=== PATIENT | female | born 1955 | race Two or more races ===

== ENCOUNTER 2019-12-02 18:20 | Emergency (ER) | payer OTHER ==
[~2019-12-02] VITALS: Ht 162.6 cm; Wt 80.7 kg
[~2019-12-02 18:20] MED LIST: NORFLEX100MG PO
== END 2019-12-02 21:43 | disposition home or self-care (01) ==
LOC: ER 18:20
DX: K52.9 Noninfective gastroenteritis and colitis, unspecified (principal)

== ENCOUNTER 2022-05-20 00:03 | Emergency (ER) | payer OTHER | END 2022-05-20 06:11 | disposition home or self-care (01) | LOC: ER 00:03 | DX: R10.9 Unspecified abdominal pain (principal); Z88.1 Allergy status to other antibiotic agents; N39.0 Urinary tract infection, site not specified; K57.90 Diverticulosis of intestine, part unspecified, without perforation or abscess without bleeding ==

== ENCOUNTER 2023-03-08 17:07 | Inpatient (IN) | payer OTHER ==
[~2023-03-08] VITALS: Ht 162.6 cm; Wt 68.0 kg
[~2023-03-08 17:07] MED LIST changes: +ACETAMINOPHEN650 M2; +ACETAMINOPHEN650 M2 PO; +CEFDINIR300 MG PO; +INTESTINEX680 M1 PO; +LEVSIN0.125 MG PO; +PEPCID20 MG PO
[2023-03-11] MEDS ORDERED: INTESTINEX680 M1 PO (10:57)
[2023-03-11] MEDS ORDERED: PEPTO-BISM262 MG/15 PO (10:57)
[2023-03-11] MEDS ORDERED: ZOFRAN8 MG PO (10:58)
[2023-03-11] MEDS ORDERED: PEPCID20 MG PO (10:59)
== END 2023-03-11 15:21 | disposition home or self-care (01) | DRG 392 ==
LOC: ER 17:07 → MEDJ 03-09 10:55
PROVIDERS: ADMIT Internal Medicine; ATTEND Internal Medicine
PROC: BW21ZZZ Computerized Tomography (CT Scan) of Abdomen and Pelvis (ICD-10-PCS; principal; 2023-03-08)
DX: K57.30 Diverticulosis of large intestine without perforation or abscess without bleeding (principal); E87.1 Hypo-osmolality and hyponatremia; E86.0 Dehydration; R19.7 Diarrhea, unspecified

== ENCOUNTER 2024-07-07 10:17 | Emergency (ER) | payer OTHER ==
[~2024-07-07] VITALS: Ht 160 cm; Wt 77.6 kg
[~2024-07-07 10:17] MED LIST changes: +PEPTO-BISM262 MG/15 PO; +ZOFRAN8 MG PO
[2024-07-07] MEDS ORDERED: 0.9 % SODIUM CHLORIDE 500 ML IV ONE (11:00)
[2024-07-07] MEDS ORDERED: FAMOtidine 10 MG/ML (4ML VIAL) IV ONE (11:00)
[2024-07-07 11:35] LABS: HEMATOCRIT 40.9 % (36.0-45.00); HEMOGLOBIN 13.9 g/dL (12.0-15.00); MEAN CELL VOLUME 90.5 fL (80.00-100.00); MEAN CORPUSCULAR HEMOGLOBIN 30.7 pg (27.00-32.0); MEAN CORPUSCULAR HGB CONC 33.9 g/dl (32.0-36.0); PLATELET COUNT 244 K/uL (150-450); RED BLOOD COUNT 4.52 M/uL (4.00-6.00); RED CELL DISTRIBUTION WIDTH 14.9 % (11.5-14.5)
[2024-07-07 12:11] LABS: ALBUMIN 3.9 gm/dL (3.4-5.0); BILIRUBIN TOTAL 0.45 mg/dL (0.3-1.2); CALCIUM 9.7 mg/dL (8.5-10.1); CREATININE SERUM 1.07 mg/dL (0.55-1.02); GFR 50.69; GLOBULINA 3.9 G/DL (2.4-3.5); POTASSIUM 3.77 mEq/L (3.5-5.1); TOTAL PROTEIN 7.8 gm/dL (6.4-8.2)
[2024-07-07 13:32] LABS: PH,URINE 6.5 (5.0-8.0); URINE APPEARANCE Clear; URINE BILIRRUBIN Negative (NEGATIVE); URINE BLOOD Negative; URINE COLOR Dark Yellow; URINE GLUCOSE Negative (NEGATIVE); URINE KETONE Negative (NEGATIVE); URINE LEUKOCYTE Trace; URINE NITRATE Positive; URINE PROTEIN Negative (NEGATIVE)
[2024-07-07 13:41] LABS: URINE EPITHELIAL CELLS 4.7 uL (0.0-38.8); URINE RBC 5.3 uL (0.0-20.8); URINE WBC 43.7 uL (0.0-23.2)
[2024-07-07 13:43] LABS: URINE BACTERIA 2.5 uL (0.0-1933)
[2024-07-07] MEDS ORDERED: PEPCID AC20 MG PO (13:55)
== END 2024-07-07 14:03 | disposition home or self-care (01) ==
LOC: ER 10:19
PROVIDERS: General Practice
DX: R53.81 Other malaise (principal); R42 Dizziness and giddiness; N39.0 Urinary tract infection, site not specified; Z20.822 Contact with and (suspected) exposure to COVID-19; Z88.1 Allergy status to other antibiotic agents; Z88.2 Allergy status to sulfonamides; Z88.6 Allergy status to analgesic agent
CPT/HCPCS: 36415; 71046; 74240; 96365; 96366; 99283; J3490; J7042

== ENCOUNTER 2024-07-21 16:19 | Emergency (ER) | payer OTHER ==
[~2024-07-21] VITALS: Ht 160 cm; Wt 77.1 kg
[~2024-07-21 16:19] MED LIST changes: +PEPCID AC20 MG PO
[2024-07-21 16:36] VITALS: BP 129/82; O2SAT 99
[2024-07-21] MEDS ORDERED: 0.9 % SODIUM CHLORIDE 1,000 ML IV ONE (17:00)
[2024-07-21] MEDS ORDERED: FAMOtidine 10 MG/ML (4ML VIAL) IV ONE (17:00)
[2024-07-21] MEDS ORDERED: KETOROLAC TROMETHAMINE 60 MG VIAL IM ONE (17:00)
[2024-07-21 17:49] LABS: HEMOGLOBIN 14.9 g/dL (12.0-15.00); MEAN CELL VOLUME 89.9 fL (80.00-100.00); MEAN CORPUSCULAR HEMOGLOBIN 30.4 pg (27.00-32.0); MEAN CORPUSCULAR HGB CONC 33.8 g/dl (32.0-36.0); PH,URINE 5.5 (5.0-8.0); PLATELET COUNT 232 K/uL (150-450); RED BLOOD COUNT 4.89 M/uL (4.00-6.00); RED CELL DISTRIBUTION WIDTH 14.3 % (11.5-14.5); URINE APPEARANCE Cloudy; URINE BILIRRUBIN Negative (NEGATIVE); URINE BLOOD Large; URINE COLOR Dark Yellow; URINE GLUCOSE Negative (NEGATIVE); URINE KETONE Negative (NEGATIVE); URINE LEUKOCYTE Large; URINE NITRATE Positive
[2024-07-21 17:52] LABS: URINE BACTERIA 84.4 uL (0.0-1933); URINE RBC 3.3 uL (0.0-20.8); URINE WBC 2147.4 uL (0.0-23.2)
[2024-07-21 18:07] LABS: URINE EPITHELIAL CELLS 0.7 uL (0.0-38.8); URINE PROTEIN 100 (NEGATIVE)
[2024-07-21 18:15] LABS: ALBUMIN 4.1 gm/dL (3.4-5.0); BILIRUBIN TOTAL 0.63 mg/dL (0.3-1.2); CALCIUM 9.9 mg/dL (8.5-10.1); CREATININE SERUM 1.13 mg/dL (0.55-1.02); GFR 47.6; GLOBULINA 4.1 G/DL (2.4-3.5); POTASSIUM 4.31 mEq/L (3.5-5.1); TOTAL PROTEIN 8.2 gm/dL (6.4-8.2)
[2024-07-21] MEDS ORDERED: CEFTRIAXONE SODIUM 1,000 MG VIAL IM ONE (21:45)
[2024-07-21] MEDS ORDERED: MACRODANTIN50 MG PO (21:49)
== END 2024-07-21 21:55 | disposition home or self-care (01) ==
LOC: ER 16:20
PROVIDERS: General Practice
DX: N39.0 Urinary tract infection, site not specified (principal); Z88.1 Allergy status to other antibiotic agents; Z88.2 Allergy status to sulfonamides; Z88.6 Allergy status to analgesic agent
CPT/HCPCS: 36415; 74177; Q9965